=== PATIENT | female | born 1940 | race Caucasian/White ===

== ENCOUNTER 2019-05-25 12:12 | Inpatient (IN) | payer MEDICARE ==
[~2019-05-25] VITALS: Ht 152.4 cm; Wt 79.0 kg
[~2019-05-25 12:12] MED LIST: ALBU3IS INH; ALEVE220 MG PO; ALLEGRA ALLERG180 MG PO; ASPI81CH PO; ATOR10 PO; Albuterol2.5 MG/0.5; Aspir 8181 MG PO; BACL10 PO; BUDE6HFA; CHOL10002; CLON.1 PO; ESOM20; ESOM20 PO; FISH OIL 1,001000 MG PO; FURO40 PO; Flovent Disku100 MCG IH; Flovent Disku100 MCG INH; GABA300 PO; HYDR1TAB94; LOSA50 PO; METF500 PO; METF500C PO; MONT10T; MONT10T PO; Micro-K10 MEQ; PROAIR RESPICL90 MCG; PROAIR RESPICL90 MCG INH; THERA-D2000 UNIT PO; VERA240ER PO
--- NOTE | 2019-05-25 13:13 | NUR ---
History, Chart, Medications and Allergies reviewed before start of procedure. Patient confirms NPO status and agrees with scheduled surgery. Lungs clear T/O to Auscultation.
--- NOTE | 2019-05-25 18:22 | NUR ---
PT TO SURGICAL FLOOR PT ARRIVED VIA GURNEY FROM OR TO SURGICAL FLOOR AT 1605. PT APPEARS SLEEPY BUT AROUSABLE. VSS W/SPO2 AT 97% ON 2L NS. DENIES PAIN, SOB, OR CHEST PAIN.
[2019-05-25 20:15] LABS: Anion Gap 4 mmol/L (6-16); Blood Urea Nitrogen 8 mg/dL (8-24); Bun/Creatinine Ratio 12.9 (12.0-20.0); CO2, Blood 26 mmol/L (21-32); Calcium, Blood 8.2 mg/dL (8.5-10.1); Chloride, Blood 108 mmol/L (98-108); Creatinine, Blood 0.62 mg/dL (0.40-1.00); Glomerular Filtration Rate >60 (60-); Glucose, Blood 189 mg/dL (70-99); Magnesium, Blood 2.2 mg/dL (1.6-2.4); Potassium, Blood 3.8 mmol/L (3.5-5.5); Sodium, Blood 138 mmol/L (136-145)
--- NOTE | 2019-05-26 04:25 | NUR ---
PATIENT HAS RESTED WELL THROUGHOUT THE NIGHT WITH GOOD CONTROL OF HER DISCOMFORT WITH THE SCHEDULED MEDICATIONS. BULKY DRESSINGS ON LT HIP ARE DRY AND INTACT WITH NO BLEEDING EVIDENCE. POLAR ICE PACK TO LT HIP. NO NUMBNESS, TINGLING, OR DEFICIT IN LT LEG. LUNGS ARE CLEAR. DID NOT ADVANCE PAST CLEAR LIQUIDS DUE TO SLEEPING.
[2019-05-26 04:58] LABS: BASOPHILS ABSOLUTE AUTO 0.03 K/mm3 (0.00-0.23); BASOPHILS PERCENT AUTO 0 % (0-2); EOSINOPHILS PERCENT AUTO 0 % (0-6); Hematocrit 33.8 % (33.0-51.0); Hemoglobin 11.2 g/dL (11.5-16.0); IMMATURE GRAN ABSOLUTE AUTO 0.07 K/mm3 (0.00-0.10); IMMATURE GRAN PERCENT AUTO 1 % (0-1); LYMPHOCYTES ABSOLUTE AUTO 0.96 K/mm3 (0.84-5.20); LYMPHOCYTES PERCENT AUTO 6 % (21-46); MONOCYTES ABSOLUTE AUTO 0.66 K/mm3 (0.16-1.47); MONOCYTES PERCENT AUTO 4 % (4-13); Mean Corpuscular HGB 27.6 pg (26.0-34.0); Mean Corpuscular HGB Conc 33.1 g/dL (31.5-36.5); Mean Corpuscular Volume 83 fL (80-100); Mean Platelet Volume 11.2 fL (9.1-12.4); NEUTROPHILS ABSOLUTE AUTO 13.57 K/mm3 (1.96-9.15); NEUTROPHILS PERCENT AUTO 89 % (41-73); Platelet Count 281 K/mm3 (150-400); RDW Coefficient Variation 14.6 % (11.7-14.2); RDW Standard Deviation 44.1 fL (35.1-46.3); Red Blood Cell Count 4.06 M/mm3 (3.80-5.20); White Blood Cell Count 15.29 K/mm3 (4.00-11.30)
[2019-05-26 05:43] LABS: Anion Gap 8 mmol/L (6-16); Blood Urea Nitrogen 7 mg/dL (8-24); Bun/Creatinine Ratio 13.3 (12.0-20.0); CO2, Blood 24 mmol/L (21-32); Calcium, Blood 8.4 mg/dL (8.5-10.1); Chloride, Blood 109 mmol/L (98-108); Creatinine, Blood 0.53 mg/dL (0.40-1.00); Glomerular Filtration Rate >60 (60-); Glucose, Blood 187 mg/dL (70-99); Magnesium, Blood 2.2 mg/dL (1.6-2.4); Potassium, Blood 4.3 mmol/L (3.5-5.5); Sodium, Blood 141 mmol/L (136-145)
--- NOTE | 2019-05-26 08:52 | NUR ---
THERAPY HERE TO SEE PT.
--- NOTE | 2019-05-26 09:53 | NUR ---
DR RIVAS HERE TO SEE PT.
[2019-05-26] MEDS ORDERED: HYDR1TAB94 PO (10:54)
[2019-05-26] MEDS ORDERED: Bactrim Ds Tab1 EACH PO (10:55)
--- NOTE | 2019-05-26 12:50 | NUR ---
DR RIVAS REPORTED THAT PT TO HAVE XYZAL PLACED OUTPT IN 3 DAYS. OFFICE REPORTED TALKING TO DR RIVAS AND THAT THEY WILL CONTACT PT AND SCHEDULE IT WITH THEM.
--- NOTE | 2019-05-26 15:40 | NUR ---
DISCHARGE: PT EATING AND DRIKING. PT VOIDING AND PASSING GAS. PT BEEN CLEARED BY THERAPY TO GO HOME. PT BEEN SEEN BY CARDIOLOGY WHO REPORTED WILL HAVE XYZOL PLACED OUTPT AND THAT PT WAS CLEARED TO GO HOME TODAY. HE ALSO GAVE INSTRUCTIONS TO TAKE CLONIDINE ONCE DAILY FOR A WEEK THEN STOP TAKING THE CLONIDINE, PT AND FAMILY REPORTS UNDERSTANDING OF DISCHARGE INSTRUCTIONS INCLUDING ICE MACHINE AND DRESSING CHANGES. PT SENT WITH DRESSING SUPPLIES AND ICE MACHINE. IV OUT, NO OTHER IV'S. TV NEWS DIRECTOR ASSISTED WITH DISCHARGE. PT REPORTS HAVING WALKER AT HOME.
--- NOTE | 2019-05-27 08:44 | NUR ---
05/27/19 0844 Jacki Walker VERIFICATIONS: EDIT CHART.
== END 2019-05-26 16:01 | disposition home or self-care (01) | DRG 470 ==
LOC: SURS 12:12 → PRE IP 14:00 → SURS 17:53
PROVIDERS: Internal Medicine; ADMIT Orthopaedic Surgery
PROC: 0SRB04A Replacement of Left Hip Joint with Ceramic on Polyethylene Synthetic Substitute, Uncemented, Open Approach (ICD-10-PCS; principal; 2019-05-25 14:00)
DX: M16.12 Unilateral primary osteoarthritis, left hip (principal); I44.1 Atrioventricular block, second degree; E11.9 Type 2 diabetes mellitus without complications; I10 Essential (primary) hypertension; D64.9 Anemia, unspecified; Z88.5 Allergy status to narcotic agent; Z88.8 Allergy status to other drugs, medicaments and biological substances; Z91.038 Other insect allergy status; Z79.84 Long term (current) use of oral hypoglycemic drugs; Z79.82 Long term (current) use of aspirin; Z79.51 Long term (current) use of inhaled steroids; Z79.899 Other long term (current) drug therapy
CPT/HCPCS: 36415; 72170; 80048; 82947; 83735; 84443; 85025; 88300; 90686; 93005; 93010; 94640; 94760; 97110; 97116; 97161; 97166; 97530; 97535; A9270-GY; C1713; C1776; G0008; J0690; J1100; J1815; J1885; J2250; J2405; J2704; J3010; J3370; J7030; J7120

== ENCOUNTER 2019-09-22 07:07 | Day surgery (SDC) | payer MEDICARE ==
[~2019-09-22] VITALS: Ht 152.4 cm; Wt 72.8 kg
[~2019-09-22 07:07] MED LIST changes: +ALBU90OI INH; +BREO ELLIPTA 21 EACH INH; +Bactrim Ds Tab1 EACH PO; +CEPH500 PO; +FERRIC CITRATE210 MG PO; +HYDR1TAB94 PO; +Nexium40 MG PO
== END 2019-09-22 09:53 | disposition home or self-care (01) ==
LOC: ORSCSDS 07:07
PROVIDERS: Student in an Organized Health Care Education/Training Program
PROC: 0DB48ZX Excision of Esophagogastric Junction, Via Natural or Artificial Opening Endoscopic, Diagnostic (ICD-10-PCS; principal; 2019-09-22 08:30)
PROC: 0DBL8ZX Excision of Transverse Colon, Via Natural or Artificial Opening Endoscopic, Diagnostic (ICD-10-PCS; principal; 2019-09-22 08:30)
PROC: 0DB78ZX Excision of Stomach, Pylorus, Via Natural or Artificial Opening Endoscopic, Diagnostic (ICD-10-PCS; principal; 2019-09-22 08:30)
DX: K21.0 Gastro-esophageal reflux disease with esophagitis (principal); Z12.11 Encounter for screening for malignant neoplasm of colon; D12.3 Benign neoplasm of transverse colon; K44.9 Diaphragmatic hernia without obstruction or gangrene; K29.70 Gastritis, unspecified, without bleeding; R13.14 Dysphagia, pharyngoesophageal phase; K57.30 Diverticulosis of large intestine without perforation or abscess without bleeding; K64.8 Other hemorrhoids; E11.9 Type 2 diabetes mellitus without complications; I10 Essential (primary) hypertension; J45.909 Unspecified asthma, uncomplicated; E78.2 Mixed hyperlipidemia; Z79.899 Other long term (current) drug therapy; Z79.84 Long term (current) use of oral hypoglycemic drugs
CPT/HCPCS: 82947; 88305; 88312; 88342; J0330; J0461; J2405; J2704; J7120

== ENCOUNTER → 2021-06-26 | Outpatient (CLI) | payer MEDICARE | END | disposition home or self-care (01) | LOC: LAB SHORT 14:51 → LAB 14:51 | DX: R10.9 Unspecified abdominal pain (principal) | CPT/HCPCS: 87086 ==

== ENCOUNTER → 2022-02-07 | Outpatient (CLI) | payer MEDICARE ==
[2022-02-07 15:54] LABS: BASOPHILS PERCENT AUTO 2 % (0-2); EOSINOPHILS ABSOLUTE AUTO 0.09 K/mm3 (0.00-0.68); EOSINOPHILS PERCENT AUTO 2 % (0-6); Hematocrit 39.2 % (33.0-51.0); Hemoglobin 13.4 g/dL (11.5-16.0); IMMATURE GRAN ABSOLUTE AUTO 0.02 K/mm3 (0.00-0.10); IMMATURE GRAN PERCENT AUTO 0 % (0-1); LYMPHOCYTES ABSOLUTE AUTO 2.06 K/mm3 (0.84-5.20); LYMPHOCYTES PERCENT AUTO 36 % (21-46); MONOCYTES PERCENT AUTO 10 % (4-13); Mean Corpuscular HGB 28.3 pg (26.0-34.0); Mean Corpuscular HGB Conc 34.2 g/dL (31.5-36.5); Mean Corpuscular Volume 83 fL (80-100); Mean Platelet Volume 10.8 fL (9.1-12.4); NEUTROPHILS ABSOLUTE AUTO 2.94 K/mm3 (1.96-9.15); NEUTROPHILS PERCENT AUTO 51 % (41-73); Platelet Count 305 K/mm3 (150-400); RDW Standard Deviation 38.9 fL (35.1-46.3); Red Blood Cell Count 4.73 M/mm3 (3.80-5.20); White Blood Cell Count 5.81 K/mm3 (4.00-11.30)
[2022-02-07 16:12] LABS: Albumin, Blood 3.4 g/dL (3.4-5.0); Bilirubin, Total 0.3 mg/dL (0.1-1.0); Bun/Creatinine Ratio 12.8 (12.0-20.0); Calcium, Blood 8.1 mg/dL (8.5-10.1); Creatinine, Blood 0.86 mg/dL (0.40-1.00); Globulin, Blood 3.5 g/dL (2.2-4.0); Thyroid Stimulating Hormone 0.745 uIU/mL (0.360-4.800); Total Protein, Blood 6.9 g/dL (6.4-8.2)
== END | disposition home or self-care (01) ==
LOC: LAB SHORT 15:47 → LAB 15:47
PROVIDERS: Physician Assistant
DX: M79.602 Pain in left arm (principal); N95.1 Menopausal and female climacteric states; R53.83 Other fatigue
CPT/HCPCS: 80053; 82670; 84443; 84484; 85025

== ENCOUNTER 2025-06-05 11:54 | Day surgery (SDC) | payer MEDICARE ==
[2025-06-05] VITALS (16 sets, daily range): BP systolic 110–180; BP diastolic 54–116
[~2025-06-05] VITALS: Ht 160 cm; Wt 73.9 kg
[~2025-06-05 11:54] MED LIST changes: +ALBU2.5V5 INH; +DOXY100 PO; +DULERA 100 MCG/13 GM INH; +IPRAT-ALBUT 0.5-3 ML IH; +IVERMECTIN3 MG PO; +MEDROL4 M2 PO; +PANT40 PO; +POTA8 PO; +PRED20 PO; +Tessalon200 MG PO
--- NOTE | 2025-06-05 13:06 | NUR ---
AMBULATORY INTO SDS. PT DENIES PAIN. HISTORY AND ALLERGIES REVIEWED. LUNGS CLEAR. PT DENIES SOB. SATS>90% ON RA. PT USED BOTH HER INHALERS THIS AM. NPO STATUS CONFIRMED.
[2025-06-05] MEDS ORDERED: Benzocaine Oral Spray 0.5ML UD ONE (14:10)
--- NOTE | 2025-06-05 14:16 | NUR ---
06/05/25 1416 Shea Gonsalez CONFIRMED AND REVIEWED H&P, MEDCICATIONS, ALLERGIES, MEDICAL HISTORY, RESPIRATORY HISTORY, VITAL SIGNS, 3-LEAD EKG, CONSENTS, AND PHYSICIAN ORDERS. PATIENT CONFIRMS NPO STATUS AND AGREES WITH SCHEDULED PROCEDURE. MONITOR INTACT WITH CONTINUOUS PULSE OXIMETRY, CAPNOGRAPHY, 3-LEAD EKG, INTERMITTENT BP. SUPPLEMENTAL O2 TO BE TITRATED THROUGHOUT PROCEDURE TO MAINTAIN O2 SATURATION ABOVE 90%. PATIENT DETERMINED TO BE ASA APPROPRIATE FOR PROPOFOL SEDATION PRIOR TO START OF PROCEDURE BY .MALLAMPATI CLASS 2 AIRWAY: COMPLETE VISUALIZATION OF THE UVULA.
--- NOTE | 2025-06-05 15:29 | NUR ---
Discharge instructions reviewed with patient. Patient verbalizes understanding. Copy given to patient to take home. Patient States Post-Procedure ride home has been arranged. Discharged via wheelchair to private car for ride home.
== END 2025-06-05 23:00 | disposition home or self-care (01) ==
LOC: ORSCMMR 11:54 → ORD 13:15 → ORSCMMR 23:00
PROVIDERS: Family Medicine
PROC: 0DB68ZX Excision of Stomach, Via Natural or Artificial Opening Endoscopic, Diagnostic (ICD-10-PCS; principal; 2025-06-05 13:15)
PROC: 0DB48ZX Excision of Esophagogastric Junction, Via Natural or Artificial Opening Endoscopic, Diagnostic (ICD-10-PCS; principal; 2025-06-05 13:15)
DX: K21.00 Gastro-esophageal reflux disease with esophagitis, without bleeding (principal); K44.9 Diaphragmatic hernia without obstruction or gangrene; K29.80 Duodenitis without bleeding; K29.00 Acute gastritis without bleeding; R13.10 Dysphagia, unspecified; E78.5 Hyperlipidemia, unspecified; I12.9 Hypertensive chronic kidney disease with stage 1 through stage 4 chronic kidney disease, or unspecified chronic kidney disease; E11.22 Type 2 diabetes mellitus with diabetic chronic kidney disease; N18.2 Chronic kidney disease, stage 2 (mild); J45.909 Unspecified asthma, uncomplicated; Z79.899 Other long term (current) drug therapy
CPT/HCPCS: 88305; 88312; 88342; A9270; J2704; J7120